=== PATIENT | female | born 1945 | race Caucasian/White ===

== ENCOUNTER 2017-08-11 09:54 | Inpatient (IN) | payer BC, OTHER ==
[~2017-08-11] VITALS: Ht 162.6 cm; Wt 87.5 kg
--- NOTE | ~2017-08-11 | EKG ---
[address] [place] [address] ELECTROCARDIOGRAM REPORT Name: JAEL CROCKETT Room #: 444-P [facility] IN .R.#: [id number] Admission: 08/11/17 Attend Phys: Andrey Dempsey MD Discharge: Date of : 41 Report #: [id number] THIS REPORT FOR: //name// [facility] ED Test Date: 2017-08-11 Test Time: 11:59:05 Pat Name: JAEL CROCKETT Department: Room: [facility] Gender: F Direct Support Worker: .. : 1945 Requested By: Zechariah Geller Order Number: [id number] MD: Jose R Santiago Measurements Intervals [place] Rate: 108 P: 70 MN: 181 QRS: 17 QRSD: 82 T: 44 QT: 327 QTc: 439 Interpretive Statements Sinus tachycardia Otherwise no significant abnormality No previous ECG available for comparison Electronically Signed On 08-15-2017 12:55:26 CDT by Jose R Santiago [email or web address] <ELECTRONICALLY SIGNED> By: Jose R Santiago MD, [facility] 08/15/17 1255 [id number] Jose R Santiago MD, FACC /EPI
--- NOTE | ~2017-08-11 | 2DMMODE ---
[facility] [address] [place] [address] 2 D/M-MODE ECHOCARDIOGRAM Name: JAEL CROCKETT E Room #: 444-P [facility] IN .R.#: [id number] Admission: 08/11/17 Attend Phys: Andrey Dempsey MD Discharge: Date of : 41 Date of Service: 08/16/17 0859 Report #: [id number] THIS REPORT FOR: //name// APPROVED REPORT Study performed: 08/16/2017 07:22:20 EXAM: Comprehensive 2D, Doppler, and color-flow Echocardiogram Patient Location: Echo lab Room #: [facility] Status: routine BSA: 1.96 HR: 100 bpm BP: 152/92 mmHg Rhythm: Tachycardia/NSR/Irregular Other Information Study Quality: Good Indications Pulmonary hypertension, short of breath. Hx: COPD, HTN 2D Dimensions RVDd: 30.57 mm LVEF(%): 52.31 (>50%) IVSd: 10.42 (7-11mm) LVOT Diam: 19.97 (18-24mm) LVDd: 47.28 mm PWd: 8.53 (7-11mm) Ascending Ao: 35.00 (22-36mm) LVDs: 34.61 (25-40mm) Aortic Root: 33.43 mm Moraes's LVEF: 52.31 % Volumes Left Atrial Volume (Systole) Single Plane 4CH: 45.78 mL Single Plane 2CH: 58.16 mL LA ESV Index: 28.00 mL/m2 Aortic Valve AoV Peak Ian.: 1.35 m/s AO Peak Gr.: 7.24 mmHg LVOT Max P.60 mmHg LVOT Max V: 1.07 m/s HUMBERTO Vmax: 2.50 cm2 Mitral Valve E/A Ratio: 0.5 MV Decel. Time: 258.40 ms [facility] [place] [address] 2 D/M-MODE ECHOCARDIOGRAM Name: JAEL CROCKETT Room #: 444-P [facility].#: [id number] Admission: 08/11/17 Attend Phys: Andrey Dempsey MD Discharge: Date of : 41 Date of Service: 08/16/17 0859 Report #: [id number] MV E Max Ian.: 0.55 m/s MV A Ian.: 1.03 m/s MV PHT: 74.93 ms IVRT: 79.58 ms Pulmonary Valve PV Peak Ian.: 1.16 m/s PV Peak Gr.: 5.42 mmHg Pulmonary Vein P Vein S: 0.73 m/s P Vein A: 0.34 m/s P Vein D: 0.65 m/s P Vein A Dur.: 86.5 msec P Vein S/D Ratio: 1.12 Tricuspid Valve TR Peak Ian.: 2.38 m/s RAP Estimate: 5.00 mmHg TR Peak Gr.: 22.64 mmHg PA Pressure: 28.00 mmHg Left Ventricle The left ventricle is normal size. There is normal LV segmental wall motion. There is normal left ventricular wall thickness. Left ventricular systolic function is normal. LVEF is >55%. Mild diastolic dysfunction is present (impaired relaxation pattern). Right Ventricle The right ventricle is normal size. The right ventricular systolic function is normal. Atria The left atrium size is normal. The right atrium size is normal. Aortic Valve The aortic valve is mildly sclerotic. No aortic regurgitation is present. There is no aortic valvular stenosis. Mitral Valve The mitral valve is normal in structure. Trace mitral regurgitation. No evidence of mitral valve stenosis. Tricuspid Valve The tricuspid valve is normal in structure. Trace tricuspid regurgitation. Estimated PAP is 25-30mmHg. Pulmonic Valve [address] [address] 2 D/M-MODE ECHOCARDIOGRAM Name: JAEL CROCKETT Room #: 444-P [facility] IN [facility]#: [id number] Admission: 08/11/17 Attend Phys: Andrey Dempsey MD Discharge: Date of : 41 Date of Service: 08/16/17 0859 Report #: [id number] The pulmonary valve is normal in structure. Trace pulmonic regurgitation. Great Vessels The aortic root is normal in size. The ascending aorta is normal in size. IVC is normal in size and collapses >50% with inspiration. Pericardium Small anterior pericardial effusion. <Conclusion> Left ventricular systolic function is normal. There is normal LV segmental wall motion. LVEF is >55%. Mild diastolic dysfunction The aortic valve is mildly sclerotic. No aortic regurgitation or stenosis The mitral valve is normal in structure. Trace mitral regurgitation. Trace tricuspid regurgitation. Estimated pulmonary artery pressure is 25-30mmHg. Small anterior pericardial effusion. <ELECTRONICALLY SIGNED> By: Jose R Santiago MD, FACC 08/16/17 0859 Jose R Santiago MD, FACC /INF
[~2017-08-11 09:54] MED LIST: ALLEGRA ALLERGY60 MG PO; COMBIVENT INH; NASACORT10.8 ML NS; OSELB75 PO; PREDNISONE 20 M20 M1 PO; SIMVASTATIN20 MG PO; SYMBICORT160 MCG/4. INH
[2017-08-11 10:08] VITALS: BP 133/74
[2017-08-11] MEDS ORDERED: VENTOLIN HFA 1818 GM INH (10:12)
[2017-08-11] MEDS ORDERED: ZPAK PO (10:13)
[2017-08-11 10:46] LABS: ABSOLUTE NEUTROPHILS 11.7 thou/uL (1.4-8.2); BASOPHILS 0.7 % (0.0-2.0); EOSINOPHILS 0.2 % (0.0-3.0); HEMATOCRIT 35.2 % (37.0-47.0); HEMOGLOBIN 11.5 gm/dL (12.0-15.0); MCH 29.7 pg (26.0-34.0); MCHC 32.7 g/dL (28.0-37.0); MCV 90.6 fL (80.0-100.0); MONOCYTES 7.5 % (1.0-8.0); PLATELET COUNT 254 thou/uL (150-400); POLYS 82.6 % (36.0-66.0); RBC 3.88 mil/uL (4.20-5.00); RDW 15.4 % (10.5-14.5); WBC 14.2 thou/uL (4.0-11.0)
[2017-08-11 10:55] LABS: ANION GAP 8 mmol/L (7-16); BUN 17 mg/dL (7-18); CALCIUM 8.5 mg/dL (8.5-10.1); CHLORIDE 103 mmol/L (98-107); CO2 26 mmol/L (21-32); CREATININE 0.9 mg/dL (0.6-1.0); GLUCOSE 196 mg/dL (74-106); POTASSIUM 3.5 mmol/L (3.5-5.1); SODIUM 137 mmol/L (136-145)
[2017-08-11 11:05] LABS: ALBUMIN 2.2 g/dL (3.4-5.0); MAGNESIUM 1.9 mg/dL (1.8-2.4); SGOT 13 U/L (15-37); SGPT 21 U/L (30-65); TOTAL BILIRUBIN 0.3 mg/dL (<0.1-1.0); TOTAL PROTEIN 7.4 g/dL (6.4-8.2); TROPONIN-I < 0.04 ng/mL (<0.06)
[2017-08-11 12:44] VITALS: BP 116/73
[2017-08-11 12:52] VITALS: BP 117/73
[2017-08-11] MEDS ORDERED: BLOOD PRESSURE (13:34)
[2017-08-11 13:45] VITALS: BP 118/70
[2017-08-11 15:47] VITALS: BP 90/55
[2017-08-11 19:19] VITALS: BP 121/68
[2017-08-12 03:30] VITALS: BP 117/74
[2017-08-12 06:09] LABS: GLYCOHEMOGLOBIN (HGB A1C) 5.4 % (4.8-5.6)
[2017-08-12 07:30] LABS: CALCIUM 8.4 mg/dL (8.5-10.1); CREATININE 0.6 mg/dL (0.6-1.0); MAGNESIUM 2.1 mg/dL (1.8-2.4); POTASSIUM 4.3 mmol/L (3.5-5.1)
[2017-08-12 08:24] VITALS: BP 125/68
[2017-08-12 09:05] LABS: ABSOLUTE NEUTROPHILS 11.7 thou/uL (1.4-8.2); BASOPHILS 0.2 % (0.0-2.0); HEMATOCRIT 32.2 % (37.0-47.0); HEMOGLOBIN 10.5 gm/dL (12.0-15.0); MCH 29.6 pg (26.0-34.0); MCHC 32.6 g/dL (28.0-37.0); MCV 90.9 fL (80.0-100.0); MONOCYTES 2.5 % (1.0-8.0); PLATELET COUNT 258 thou/uL (150-400); POLYS 91.3 % (36.0-66.0); RBC 3.54 mil/uL (4.20-5.00); RDW 15.4 % (10.5-14.5); WBC 12.8 thou/uL (4.0-11.0)
[2017-08-12 16:18] VITALS: BP 127/65
[2017-08-12 21:05] VITALS: BP 142/88
[2017-08-13 03:19] VITALS: BP 133/76
[2017-08-13 05:27] LABS: ALBUMIN 1.9 g/dL (3.4-5.0); CALCIUM 8.1 mg/dL (8.5-10.1); CREATININE 0.7 mg/dL (0.6-1.0); MAGNESIUM 1.9 mg/dL (1.8-2.4); TOTAL BILIRUBIN 0.2 mg/dL (<0.1-1.0); TOTAL PROTEIN 6.4 g/dL (6.4-8.2)
[2017-08-13 05:29] LABS: HEMATOCRIT 32.2 % (37.0-47.0); HEMOGLOBIN 10.5 gm/dL (12.0-15.0); MCH 29.7 pg (26.0-34.0); MCHC 32.7 g/dL (28.0-37.0); MCV 90.8 fL (80.0-100.0); RBC 3.54 mil/uL (4.20-5.00); RDW 15.4 % (10.5-14.5); WBC 17.4 thou/uL (4.0-11.0)
[2017-08-13 06:04] LABS: TSH 0.766 uIU/mL (0.358-3.740)
[2017-08-13 08:28] VITALS: BP 150/88
[2017-08-13 16:29] VITALS: BP 146/79
[2017-08-13 19:27] VITALS: BP 147/83
[2017-08-14 03:55] VITALS: BP 145/81
[2017-08-14 06:28] LABS: HEMATOCRIT 33.5 % (37.0-47.0); HEMOGLOBIN 10.9 gm/dL (12.0-15.0); MCH 29.5 pg (26.0-34.0); MCHC 32.6 g/dL (28.0-37.0); MCV 90.6 fL (80.0-100.0); RBC 3.7 mil/uL (4.20-5.00); RDW 15.3 % (10.5-14.5); WBC 15.4 thou/uL (4.0-11.0)
[2017-08-14 06:41] LABS: CALCIUM 8.2 mg/dL (8.5-10.1); CREATININE 0.7 mg/dL (0.6-1.0)
[2017-08-14 08:00] VITALS: BP 163/91
[2017-08-14 13:36] LABS: BE(vivo) 3.7 mmol/L (-2 to +3); HCO3 27.2 mmol/L (22.0-26.0); PCO2 37.2 mmHg (35.0-45.0); PO2 56.1 mmHg (80.0-100.0); pH 7.482 (7.360-7.450); sO2 91.3 % (92.0-98.0)
[2017-08-14 16:00] VITALS: BP 144/78
[2017-08-14 19:34] VITALS: BP 152/97
[2017-08-15 04:50] VITALS: BP 144/86
[2017-08-15 05:31] LABS: HEMATOCRIT 35.3 % (37.0-47.0); HEMOGLOBIN 11.6 gm/dL (12.0-15.0); MCH 29.7 pg (26.0-34.0); RBC 3.92 mil/uL (4.20-5.00); RDW 15.6 % (10.5-14.5); WBC 15.4 thou/uL (4.0-11.0)
[2017-08-15 05:42] LABS: CALCIUM 8.7 mg/dL (8.5-10.1); CREATININE 0.8 mg/dL (0.6-1.0); POTASSIUM 4.3 mmol/L (3.5-5.1)
[2017-08-15 08:00] VITALS: BP 144/85
[2017-08-15 16:00] VITALS: BP 127/78
[2017-08-15 21:12] VITALS: BP 144/81
[2017-08-16 03:22] VITALS: BP 152/92
[2017-08-16 05:35] LABS: HEMATOCRIT 37.2 % (37.0-47.0); HEMOGLOBIN 12.3 gm/dL (12.0-15.0); MCH 29.9 pg (26.0-34.0); MCHC 33.1 g/dL (28.0-37.0); MCV 90.4 fL (80.0-100.0); RBC 4.12 mil/uL (4.20-5.00); RDW 15.3 % (10.5-14.5); WBC 15.8 thou/uL (4.0-11.0)
[2017-08-16 05:47] LABS: CALCIUM 8.6 mg/dL (8.5-10.1); CREATININE 0.8 mg/dL (0.6-1.0)
[2017-08-16 09:00] VITALS: BP 145/77
[2017-08-16] MEDS ORDERED: DUONEB 2.5-0.5 M3 ML INH (11:30)
[2017-08-16] MEDS ORDERED: PULMICORT0.5 MG/21 INH (11:30)
[2017-08-16] MEDS ORDERED: NEBULIZER INH (11:32)
[2017-08-16] MEDS ORDERED: LEVAQUIN 750 M750 MG PO (12:30)
[2017-08-16] MEDS ORDERED: PREDNISONE 10 M10 M1 PO (12:31)
[2017-08-16 12:44] VITALS: BP 145/77
== END 2017-08-16 16:00 | disposition home or self-care (01) | DRG 194 ==
LOC: ER 09:54 → EROBS 11:43 → 4S 11:43 → ENTRNSPT 08-16 15:45 → EDTRNSPTSTS 08-16 15:49 → 4S 08-16 16:00
PROVIDERS: Emergency Medicine; Hospitalist; Internal Medicine Pulmonary Disease; Nurse Practitioner; Registered Nurse
DX: J18.9 Pneumonia, unspecified organism (principal); J44.0 Chronic obstructive pulmonary disease with (acute) lower respiratory infection; E44.0 Moderate protein-calorie malnutrition; J44.1 Chronic obstructive pulmonary disease with (acute) exacerbation; E78.00 Pure hypercholesterolemia, unspecified; I10 Essential (primary) hypertension; F17.210 Nicotine dependence, cigarettes, uncomplicated; F41.9 Anxiety disorder, unspecified; Z80.49 Family history of malignant neoplasm of other genital organs; Z88.0 Allergy status to penicillin; Z90.710 Acquired absence of both cervix and uterus; Z98.42 Cataract extraction status, left eye; Z98.41 Cataract extraction status, right eye; Z68.33 Body mass index [BMI] 33.0-33.9, adult
CPT/HCPCS: 10100

== ENCOUNTER → 2017-09-07 | Outpatient (CLI) | payer BC, OTHER ==
[~2017-09-07] MED LIST changes: +BLOOD PRESSURE; +DUONEB 2.5-0.5 M3 ML INH; +LEVAQUIN 750 M750 MG PO; +NEBULIZER INH; +PREDNISONE 10 M10 M1 PO; +PULMICORT0.5 MG/21 INH; +VENTOLIN HFA 1818 GM INH; +ZPAK PO
== END ==
LOC: RAD 12:47
DX: J84.10 Pulmonary fibrosis, unspecified (principal); R91.8 Other nonspecific abnormal finding of lung field

== ENCOUNTER → 2017-09-16 | Outpatient (CLI) | payer BC, OTHER | LOC: CAT 05:45 | DX: J84.9 Interstitial pulmonary disease, unspecified (principal); J43.8 Other emphysema; S32.030A Wedge compression fracture of third lumbar vertebra, initial encounter for closed fracture; R06.00 Dyspnea, unspecified; Z88.0 Allergy status to penicillin; X58.XXXA Exposure to other specified factors, initial encounter; Y93.89 Activity, other specified; Y92.89 Other specified places as the place of occurrence of the external cause; Y99.8 Other external cause status ==

== ENCOUNTER → 2017-11-10 | Outpatient (CLI) | payer BC, OTHER | LOC: CAT 05:49 | DX: J43.2 Centrilobular emphysema (principal); I70.90 Unspecified atherosclerosis; M48.56XA Collapsed vertebra, not elsewhere classified, lumbar region, initial encounter for fracture ==

== ENCOUNTER → 2017-11-22 | Outpatient (CLI) | payer OTHER, BC | LOC: SLEEPLAB 12:46 | DX: G47.33 Obstructive sleep apnea (adult) (pediatric) (principal) ==

== ENCOUNTER 2019-06-28 10:12 | Inpatient (IN) | payer OTHER ==
[~2019-06-28] VITALS: Ht 162.6 cm; Wt 97.1 kg
--- NOTE | ~2019-06-28 | EKG ---
[facility] [place] [address] ELECTROCARDIOGRAM REPORT Name: JAEL CROCKETT Room #: 170- ADM IN M.R.#: [id number] Admission: 06/28/19 Attend Phys: Lillian Rojas MD Discharge: Date of : 41 Report #: [id number] THIS REPORT FOR: cc: Edis Henson David J. DO Epiphany, Epiphany MD ~ THIS REPORT FOR: //name// [facility] ED Test Date: 2019-06-28 Test Time: 10:39:35 Pat Name: JAEL CROCKETT Department: Room: 170 4 Gender: F Manager Telemarketing: JAQUELIN : 1945 Requested By: Sana Mathew Order Number: [id number] MD: Measurements Intervals [place] Rate: 106 P: 82 OK: 196 QRS: 60 QRSD: 70 T: 79 QT: 346 QTc: 460 Interpretive Statements Sinus tachycardia No previous ECG available for comparison [email or web address] By: 1039 1039 Epiphany EpiphanyMD /EPI
--- NOTE | ~2019-06-28 | H ---
[facility] [place] [address] HISTORY AND PHYSICAL Name: JAEL CROCKETT Room #: 216-P ADM IN M.R.#: [id number] Admission: 06/28/19 Attend Phys: Lillian Rojas MD Discharge: Date of : 41 Report #: [id number] THIS REPORT FOR: //name// CC: Edis Rojas DATE OF SERVICE: 06/28/2019 ADMISSION HISTORY AND PHYSICAL EXAMINATION Primary care physician, Dr. Juanjose Henson and primary detective bowling alley, Dr. Weber at [facility] and she has not seen anyone since Dr. Weber left. CHIEF COMPLAINT: Fever, cough and worsening shortness of breath for past 1-2 days. HISTORY OF PRESENT ILLNESS: The patient is a very pleasant 73-year-old female with continued tobacco use and severe COPD along with mild bronchiectasis and hypertension. The patient informs me that her baseline level of activity is walking from the parking lot to the [employer] at a very slow pace. If she has to walk faster, then she gets short of breath, but lately even getting up and going to the bathroom, she has been short of breath and her cough has been progressively worsening. Since yesterday morning, she has been having persistent fever and the cough has gotten significantly worse as well along with sputum production, which is clear. The patient denies any exposure to illness and she denies any pleuritic chest pain. Denies any hemoptysis. Has not had any associated nausea, vomiting or diarrhea along with this upper respiratory illness. She denies any associated sore throat, ear infection or sinus drainage. The patient also denies any dysuria, hematuria, frequency or urgency of urination. The patient also has no weakness or numbness of any part of the body and also denies any dizziness, lightheadedness, or syncopal episodes. PAST MEDICAL HISTORY: Significant for: 1. Hypertension. 2. COPD. 3. Bronchiectasis. 4. Questionable history of heart disease. PAST SURGICAL HISTORY: The patient has had: 1. Partial hysterectomy. 2. Cholecystectomy. FAMILY HISTORY: The patient informs me that mother had diabetes mellitus and denies any other family history. [address] [address] HISTORY AND PHYSICAL Name: JAEL CROCKETT Room #: 216-P [facility] IN [facility].#: [id number] Admission: 06/28/19 Attend Phys: Lillian Rojas MD Discharge: Date of : 41 Report #: [id number] PERSONAL AND SOCIAL HISTORY: The patient continues to smoke 1 pack per day and has smoked all her life and has absolutely no intentions to quit smoking and denies any alcohol intake. PHARMACY: The patient uses [facility] on [address] or at [facility]. Her emergency contact is her daughter, Prerna Mcintosh, and a durable power of patent prosecution attorney for health is her son Cricket [phone]. The patient wishes to be full code, but she does have advanced directives. ALLERGIES: THE PATIENT IS ALLERGIC TO PENICILLIN, WHICH MAINLY CAUSES NAUSEA AND VOMITING AND HAS NOT HAD ANY ALLERGIC REACTION A RASH OR TO CEPHALOSPORINS. REVIEW OF SYSTEMS: Ten-point review of system was done. Please see HPI. PHYSICAL EXAMINATION: VITAL SIGNS: Temperature 38.5, heart rate 115, respirations 20, blood pressure 141/75, pulse oximetry 94% on room air. GENERAL: Alert and oriented to time, place and person, very pleasant, obese female who is having dry cough during the visit and is in mild distress because of cough and dyspnea. HEENT: Normocephalic, atraumatic. Pupils are equally round and reactive to light. Extraocular muscle movements are intact. Conjunctivae are clear. Sclerae are nonicteric. Oropharynx is clear. No postnasal drip noted. Mucous membranes are moist. NECK: Supple, no JVD, no lymphadenopathy. HEART: S1, S2, regular. Tachycardia noted. LUNGS: The patient has end expiratory wheezes in all lung freedman and bibasilar crackles are also noted. No chest wall tenderness elicited. The patient has bilaterally symmetrical chest expansion. ABDOMEN: Soft, nontender, nondistended, normal active bowel sounds. EXTREMITIES: No edema both lower extremities. NEUROLOGIC: Completely nonfocal. SKIN: Without any rash or breakdown. LABORATORY DATA: The patient has a blood gas of 7.437 pH with pCO2 of 35.4, pO2 low at 57.7 and oxygen saturation low as well as 89% on room air with carboxyhemoglobin elevated at 1.6, lactic acid 0.81. Urinalysis with pH 6.0, specific gravity 1.020, 2+ blood, negative for leukocyte esterase as well as nitrites. Influenza A and B are negative. Hematology indicates WBC elevated at 13.7, hemoglobin 11.3, hematocrit 35 and RDW mildly elevated at 16.2 and platelet count normal at 195. Differential is [address] [address] HISTORY AND PHYSICAL Name: JAEL CROCKETT Room #: 216-P ADM IN M.R.#: [id number] Admission: 06/28/19 Attend Phys: Lillian Rojas MD Discharge: Date of : 41 Report #: [id number] significant for segmented neutrophil elevated at 82.2. Chemistries indicate sodium 134, potassium 3.9, chloride 102, bicarbonate 25, anion gap 7, BUN 19, creatinine 0.9. Calculated GFR is 61. Serum glucose is 127. Lactic acid is 1.3, calcium 8.4, total bilirubin 0.4, AST 16, ALT 22, alkaline phosphatase 54, total protein 7.4, albumin 2.8. Electrocardiogram indicates sinus tachycardia, but otherwise unremarkable EKG. Chest x-ray portable done in the Emergency Room indicates moderate chronic pulmonary interstitial changes and minor basal atelectasis. Blood cultures have been drawn in the Emergency Room and are pending. ASSESSMENT AND PLAN: 1. Chronic obstructive pulmonary disease exacerbation. 2. Acute febrile illness with possible tracheobronchitis and bronchiectasis. 3. Hypertension. 4. Acute hypoxemic respiratory failure. The patient is not on home oxygen and has had COPD with some interstitial changes and some bronchiectasis as per the CT scan of the chest from 2015 when the patient was being followed by Dr. Weber here, the patient had a repeat CT in 10/2017, which indicated numerous calcified granuloma and bullous emphysema as well as moderately severe centrilobular emphysema and mild pleural parenchymal scarring noted as well. The patient is aware about her advanced pulmonary disease and would go ahead and start Solu-Medrol. For possible pneumonitis and tracheobronchitis, we will go ahead and do a strep pneumo antigen and legionella antigen with respiratory viral panel as well and we will consider pulmonary consulted if the patient does not respond to the treatment. 5. We will go ahead and do Accu-Cheks q.i.d. a.c. and at bedtime as the patient does have a history of hyperglycemia. For hypertension, we will go ahead and resume her home medication, Norvasc and if needed, then we will use hydralazine p.r.n. 6. The patient wishes to be full code. Orders have been written. We will go ahead and repeat chest x-ray tomorrow morning. Plan of care was discussed with the patient as well as her daughter who is sitting at the bedside. By: 1604 [id number] Lillian Rojas MD /nt
[2019-06-28 10:15] VITALS: BP 141/75
[2019-06-28] MEDS ORDERED: NORVASC5 M1 PO (10:19)
[2019-06-28] MEDS ORDERED: ESCITALOPRAM OX20 MG PO (10:21)
[2019-06-28] MEDS ORDERED: VITAMIN C1000 MG PO (10:21)
[2019-06-28] MEDS ORDERED: CALCIUM + VITA1 EACH PO (10:24)
[2019-06-28 11:12] LABS: ABSOLUTE NEUTROPHILS 11.3 thou/uL (1.4-8.2); BASOPHILS 0.4 % (0.0-2.0); EOSINOPHILS 0.9 % (0.0-3.0); HEMOGLOBIN 11.3 gm/dL (12.0-15.0); LYMPHOCYTES 7.9 % (24.0-44.0); MCH 29.6 pg (26.0-34.0); MCHC 32.2 g/dL (28.0-37.0); MONOCYTES 8.6 % (1.0-8.0); PLATELET COUNT 195 thou/uL (150-400); POLYS 82.2 % (36.0-66.0); RDW 16.2 % (10.5-14.5); WBC 13.7 thou/uL (4.0-11.0)
[2019-06-28 11:23] LABS: ANION GAP 7 mmol/L (7-16); BUN 19 mg/dL (7-18); CALCIUM 8.4 mg/dL (8.5-10.1); CHLORIDE 102 mmol/L (98-107); CO2 25 mmol/L (21-32); CREATININE 0.9 mg/dL (0.6-1.0); GLUCOSE 127 mg/dL (74-106); POTASSIUM 3.9 mmol/L (3.5-5.1); SODIUM 134 mmol/L (136-145)
[2019-06-28 11:31] LABS: ALBUMIN 2.8 g/dL (3.4-5.0); DIRECT BILIRUBIN < 0.1 mg/dL (<0.1-0.2); SGOT 16 U/L (15-37); SGPT 22 U/L (30-65); TOTAL BILIRUBIN 0.4 mg/dL (<0.1-1.0); TOTAL PROTEIN 7.4 g/dL (6.4-8.2)
[2019-06-28 12:49] LABS: URINE BILIRUBIN NEGATIVE (Negative); URINE BLOOD 2+ (Negative); URINE CLARITY CLEAR; URINE COLOR YELLOW; URINE GLUCOSE-RANDOM* NEGATIVE (Negative); URINE KETONES NEGATIVE (Negative); URINE LEUKOCYTES-REFLEX NEGATIVE (Negative); URINE NITRITE-REFLEX NEGATIVE (Negative); URINE PROTEIN (DIPSTICK) TRACE (Negative); URINE UROBILINOGEN 0.2 E.U./dl (0.2-1.0)
[2019-06-28 13:13] LABS: BACTERIA-REFLEX 1-9 Few /HPF (None Seen); CASTS None Seen /LPF (None Seen); CRYSTALS None Seen /LPF (None Seen); SQUAMOUS 0-3 Few /LPF (0-3); URINE RBC 3-10 Few /HPF (0-2); URINE WBC-REFLEX 0-5 Rare /HPF (0-5)
[2019-06-28 13:59] LABS: BE(vivo) -0.5 mmol/L (-2 to +3); HCO3 23.3 mmol/L (22.0-26.0); PCO2 35.4 mmHg (35.0-45.0); PO2 57.7 mmHg (80.0-100.0); pH 7.437 (7.360-7.450); sO2 91.1 % (92.0-98.0)
[2019-06-28 16:00] VITALS: BP 107/67
[2019-06-28 17:00] VITALS: BP 107/67
[2019-06-28 17:03] VITALS: BP 105/86
[2019-06-28 18:01] LABS: ABSOLUTE NEUTROPHILS 12.3 thou/uL (1.4-8.2); BASOPHILS 0.2 % (0.0-2.0); HEMATOCRIT 36.7 % (37.0-47.0); HEMOGLOBIN 11.7 gm/dL (12.0-15.0); LYMPHOCYTES 3.9 % (24.0-44.0); MCH 29.7 pg (26.0-34.0); MCV 92.7 fL (80.0-100.0); MONOCYTES 1.7 % (1.0-8.0); PLATELET COUNT 205 thou/uL (150-400); POLYS 94.2 % (36.0-66.0); RBC 3.96 mil/uL (4.20-5.00); RDW 16.4 % (10.5-14.5); WBC 13.1 thou/uL (4.0-11.0)
[2019-06-28 18:11] LABS: CALCIUM 8.1 mg/dL (8.5-10.1); CREATININE 0.9 mg/dL (0.6-1.0)
[2019-06-28 18:18] LABS: ALBUMIN 2.9 g/dL (3.4-5.0); TOTAL BILIRUBIN 0.5 mg/dL (<0.1-1.0); TOTAL PROTEIN 7.8 g/dL (6.4-8.2)
--- NOTE | 2019-06-28 18:50 | NUR ---
PT ADMITED FROM ER. ALERT AND ORIENTED. ADMISSION HX AND ASSESSMENT COMPLETED. VSS. PT ORIENTED TO THE ROOM AND THE CALL LIGHT SYSTEM. NEW ORDERS NOTED. WILL CONTINUE TO MONITOR.
[2019-06-28 19:43] VITALS: BP 129/65
[2019-06-29 04:11] VITALS: BP 109/57
[2019-06-29 05:27] LABS: ABSOLUTE NEUTROPHILS 10.7 thou/uL (1.4-8.2); BASOPHILS 0.1 % (0.0-2.0); HEMATOCRIT 33.9 % (37.0-47.0); HEMOGLOBIN 10.7 gm/dL (12.0-15.0); LYMPHOCYTES 4.9 % (24.0-44.0); MCH 29.5 pg (26.0-34.0); MCHC 31.7 g/dL (28.0-37.0); MCV 93.2 fL (80.0-100.0); PLATELET COUNT 190 thou/uL (150-400); RBC 3.64 mil/uL (4.20-5.00); RDW 16.5 % (10.5-14.5); WBC 11.5 thou/uL (4.0-11.0)
[2019-06-29 05:56] LABS: CALCIUM 7.8 mg/dL (8.5-10.1); CREATININE 1.1 mg/dL (0.6-1.0); MAGNESIUM 2.1 mg/dL (1.8-2.4); PHOSPHORUS 1.5 mg/dL (2.5-4.9); POTASSIUM 3.6 mmol/L (3.5-5.1)
[2019-06-29 07:00] VITALS: BP 121/63
--- NOTE | 2019-06-29 08:05 | NUR ---
ASSESSMENTS CHARTED, MEDS GIVEN CHARTED. ALERT AND ORIENTED, WHEEZES ON INSPIRATION. UP TO BATHROOM AT ALEJA. SKIN INTACT. PATIENT REQUESTED NICOTINE PATCH. PATCH PLACED ON LEFT DELTOID. PATIENT RECEIVING IV STEROID THERAPY. BLOOD SUGARS BEING CHECKED ACHS WITH SSI.
[2019-06-29 11:00] VITALS: BP 125/65
--- NOTE | 2019-06-29 13:39 | NUR ---
ORDERS RECEIVED FOR EVAL AND TREAT. PER NURSING NOTES, Pt IS UP AD ALEJA. SPOKE WITH Pt WHO STATES SHE HAS BEEN UP WITHOUT DIFFICULTY. ASKED HER ABOUT PREVIOUS FALLS AND Pt STATES SHE SLIPPED ON ICE. Pt DECLINING FORMAL P.T. EVAL BUT APPEARS TO BE MOVING FINE
--- NOTE | 2019-06-29 14:05 | NUR ---
PATIENT REFUSED FORMAL OT EVALUATION, REPORTS THAT SHE DOESN'T HAVE ANY DIFFICULTY COMPLETING ADLS.
--- NOTE | 2019-06-29 15:42 | NUR ---
ASSESSMENT CHARTED. PT ALERT AND ORIENTED. DENIED HAVING PAIN OR DISCOMFORT. RT TREATMENT PROVIDED ORDERED. NO CONCERNS AT THIS TIME. WILL CONTINUE TO MONITOR.
[2019-06-29 16:00] VITALS: BP 131/68
--- NOTE | 2019-06-29 16:26 | NUR ---
Chart reviewed and case discussed with the care team. Pt declined therapy evals and is indep with gait and adl's. Up ad buffy in the room. Her grandson recently moved in with her. She has ins and pcp in place for f/u care. Case not opened. No cm interventions indicated at this time.
[2019-06-29 19:31] VITALS: BP 130/73
--- NOTE | 2019-06-30 01:02 | NUR ---
ASSESSMENTS CHARTED, MEDS GIVEN CHARTED. PATIENT CONTINUES TO HAVE WHEEZES WITH BREATHS, ON ROOM AIR. RECEIVING BREATHING TREATMENTS. CHECKING BLOOD GLUCOSE DUE TO IV STEROID THERAPY. ON SSI. PATIENT UP AT ALEJA IN ROOM. NICOTINE PATCH IN PLACE ON RIGHT DELTOID. DENIES PAIN. RECEIVING ABX TREATMENT DAILY. PATIENT IS HOPING TO GO HOME IN MORNING IF POSSIBLE.
[2019-06-30 04:34] VITALS: BP 135/78
[2019-06-30 08:03] VITALS: BP 122/91
[2019-06-30 11:30] VITALS: BP 140/80
--- NOTE | 2019-06-30 15:42 | NUR ---
met with patient who resides at home independently. No steps on main level of home. She has no DME and no hx of needing DME. PCP Dr Gan at [facility]. Grandson resides with patient in home. She fell on ice but reports independent. she is up ad buffy in room. Patient reports her spouse passed last year and family, her children are very supportive and check on her frequently. casemgt following.
[2019-06-30 15:57] LABS: ABSOLUTE NEUTROPHILS 13.7 thou/uL (1.4-8.2); BASOPHILS 0.2 % (0.0-2.0); HEMATOCRIT 35.6 % (37.0-47.0); HEMOGLOBIN 11.5 gm/dL (12.0-15.0); LYMPHOCYTES 4.6 % (24.0-44.0); MCH 29.6 pg (26.0-34.0); MCHC 32.2 g/dL (28.0-37.0); MCV 92.1 fL (80.0-100.0); MONOCYTES 4.2 % (1.0-8.0); PLATELET COUNT 232 thou/uL (150-400); RBC 3.87 mil/uL (4.20-5.00); RDW 16.2 % (10.5-14.5); WBC 15.1 thou/uL (4.0-11.0)
[2019-06-30 16:47] VITALS: BP 135/78
--- NOTE | 2019-06-30 17:18 | NUR ---
PT ALERT AND ORIENTED. SCHEDULED RT TREATMENT GIVEN ORDERED. SOB NOTED WITH ACTIVITY. SEEN BY DR. DIETZ. WILL CONTINUE TO MONITOR.
[2019-06-30 20:10] VITALS: BP 136/81
--- NOTE | 2019-06-30 23:41 | NUR ---
ASSESSMENTS CHARTED, MEDS GIVEN CHARTED. RECEIVING IV ANTIBIOTIC THERAPY. PATIENT STILL RECEIVING STEROID THERAPY. BEGAN TAPER TODAY. PATIENTS ANXIETY MEDS RESTARTED TODAY. ACHS ON SSI DUE TO STEROID USE. PATIENT PAIN FREE DURING SHIFT. UP AT ALEJA IN ROOM. VSS. PATIENT IS HOPING TO GO HOME IN AM OR NO LATER THAN WEDNESDAY MORNING TO WATCH THE [employer] GAME WITH FAMILY.
[2019-07-01 04:45] VITALS: BP 126/80
[2019-07-01 08:00] VITALS: BP 132/78
[2019-07-01 16:00] VITALS: BP 143/83
[2019-07-01 17:29] VITALS: BP 144/87
--- NOTE | 2019-07-01 17:47 | NUR ---
ASSUMED CARE OF PT AT SHIFT CHANGE. ASSESSMENT CHARTED. MEDS GIVEN PER JUL. VSS. PT A&OX4. NO C/O PAIN. ON RA WITH NON-PRODUCTIVE COUGH. UP AD ALEJA, BUT NEEDS TO WALK TONIGHT. [facility]ERRED TO [facility]. REPORT GIVEN TO RECEIVING NURSE.
[2019-07-01 19:15] VITALS: BP 136/81
--- NOTE | 2019-07-01 19:32 | NUR ---
PATIENT TRANSFERRED FROM [address] [place] [address], REPORT FROM KATIE/RN. PATIENT ALERT AND ORIENTED X 4. UP AD ALEJA. POSSIBLE DISCHARGE TOMORROW. DENIES PAIN UPON ARRIVAL TO THE UNIT.
--- NOTE | 2019-07-02 04:31 | NUR ---
PATIENT ALERT AND ORIENTED X4. UP ADLIB IN ROOM. ACCEPTING RT TREATMENTS THROUGHOUT THE NIGHT. BS MONITORED PER ORDER. NON PRODUCTIVE COUGH, GIVEN PRN MEDICATION WITH GOOD RESULTS. PLEASANT AND COOPERATIVE. GOOD REST DURING THE NIGHT. SOME SOA NOTED, HOWEVER, RECOVERED WELL. DENIES PAIN. WILL MONITOR.
[2019-07-02 08:00] VITALS: BP 151/91
--- NOTE | 2019-07-02 12:14 | NUR ---
ASSUMED CARE OF PATIENT AT 0715, PATIENT ALERT AND ORIENTED X 4. UP AD ALEJA. PATIENT DENIES PAIN THIS AM. PATIENT STILL HAS WHEEZES AND NPC, RECEIVES BREATHING TREATMENTS SCHEDULED. DR DILLON HERE THIS AM, NO DISCHAGE TODAY, MATNIKHIL TOMORROW. PATIENT HAS RIGHT FOREARM IV IN PLACE, RECEIVED 1 IV ANTIBIOTIC THIS AM. BLOOD SUGAR MONITORING ORDERED DUE TO STEROIDS. WILL CONTINUE TO MONITOR.
[2019-07-02 19:58] VITALS: BP 128/79
[2019-07-02 20:18] VITALS: BP 128/79
--- NOTE | 2019-07-03 03:53 | NUR ---
ASSSUMED CARE OF PATIENT AT SHIFT CHANGE. ASSESSMENT CHARTED. MEDICATIONS GIVEN PER JUL. PATIENT IS A&OX4. VSS, O2 94% ON RA. PATIENT DENIES PAIN. PATIENT GETS UP TO AMBULATE AND TOILET INDEPENDENTLY WITH GOOD TOLERANCE. PATIENT CONTINUE TO GET SHORT OF AIR WHEN AMBULATING AND CONTINUE TO HAVE A NONPRODUCTIVE COUGH THIS SHIFT. RT TX GIVEN SCHEDULED. PATIENTS COUGH WAS EXACERBATED AFTER RECIEVING 3AM TX. PATIENT WAS GIVEN BENZONATATE PO NEEDED. PER PHYSICIAN NOTE, PLAN IS TO DISCHARGE IN AM. PATIENT CALLS OUT APPROPRIATELY AND VOICES NO OTHER CONCERNS. WILL CONTINUE TO MONITOR AND FOLLOW PLAN OF CARE.
--- NOTE | 2019-07-03 05:24 | NUR ---
THIS NURSE AGREES WITH ASSESSMENT AND NOTES BY FINANCIAL SPECIALIST ON THIS PATIENT.
[2019-07-03 07:16] VITALS: BP 133/77
--- NOTE | 2019-07-03 10:36 | NUR ---
DISCHARGE NOTE: SW reviewed chart and spoke with nursing and attending physician. Pt was transferred to [facility] from and is medically stable for discharge home today. SW met with pt at bedside to discuss discharge plan. Pt is aware and in agreement with discharge plan. No discharge needs identified. Pt's family to provide transportation home. SW is available to assist should needs arise.
[2019-07-03] MEDS ORDERED: BENZONATATE100 MG PO (12:41)
[2019-07-03] MEDS ORDERED: NICOTINE1 EAC2 TRANSDERM (12:41)
[2019-07-03] MEDS ORDERED: MUCINEX600 MG PO (12:41)
[2019-07-03] MEDS ORDERED: PREDNISONE 20 M20 M1 PO (12:41)
[2019-07-03] MEDS ORDERED: CEFDINIR300 MG PO (12:43)
[2019-07-03 13:02] VITALS: BP 133/77
--- NOTE | 2019-07-03 14:44 | NUR ---
ASSUMED CARE OF PATIENT AT 0715, PATIENT ALERT AND ORIENTED X 4. UP AD ALEJA. NO C/O PAIN. COUGHING MORE, NPC. WHEEZING NOTED WITH LUNGS, BREATHING TREATMENT SCHEDULED. PO PREDNISONE STARTED THIS AM, ONETIME ORDER FOR LASIX 40MG IV GIVEN. DR DILLON HERE THIS AM, WILL DISCHARGE PATIENT TO HOME WITH SELF CARE. RIGHT FOREARM IV, RECEIVED 1 IV ANTIBIOTIC THIS AM. ALL DISCHARGE PAPERWORK SENT WITH THE PATIENT AND ALL PERSONAL BELONGINGS SENT WITH THE PATIENT. NEW SCRIPTS SENT TO THE PATIENT PHARMACY. RIGHT FOREARM IV REMOVED PRIOR TO DISCHARGE.
== END 2019-07-03 14:59 | disposition home or self-care (01) | DRG 871 ==
LOC: ER 10:12 → EROBS 14:13 → 2N 14:13 → 4N 07-01 17:10 → ENTRNSPT 07-03 14:18 → EDTRNSPTSTS 07-03 14:28 → 4N 07-03 14:59
PROVIDERS: Emergency Medicine; ADMIT Internal Medicine
DX: A41.9 Sepsis, unspecified organism (principal); J96.22 Acute and chronic respiratory failure with hypercapnia; J96.21 Acute and chronic respiratory failure with hypoxia; J44.1 Chronic obstructive pulmonary disease with (acute) exacerbation; J44.0 Chronic obstructive pulmonary disease with (acute) lower respiratory infection; I10 Essential (primary) hypertension; E78.5 Hyperlipidemia, unspecified; E78.00 Pure hypercholesterolemia, unspecified; F17.210 Nicotine dependence, cigarettes, uncomplicated; E83.39 Other disorders of phosphorus metabolism; J20.9 Acute bronchitis, unspecified; F32.9 Major depressive disorder, single episode, unspecified; G47.00 Insomnia, unspecified; E66.9 Obesity, unspecified; Z83.3 Family history of diabetes mellitus; Z68.36 Body mass index [BMI] 36.0-36.9, adult; Z80.9 Family history of malignant neoplasm, unspecified; Z90.49 Acquired absence of other specified parts of digestive tract; Z90.710 Acquired absence of both cervix and uterus; Z79.899 Other long term (current) drug therapy; Z88.0 Allergy status to penicillin
CPT/HCPCS: 10081; 10790

== ENCOUNTER 2021-05-02 11:15 | Emergency (ER) | payer OTHER ==
[~2021-05-02] VITALS: Ht 162.6 cm; Wt 90.7 kg
[~2021-05-02 11:15] MED LIST changes: +BENZONATATE100 MG PO; +CALCIUM + VITA1 EACH PO; +CEFDINIR300 MG PO; +ESCITALOPRAM OX20 MG PO; +MUCINEX600 MG PO; +NICOTINE1 EAC2 TRANSDERM; +NORVASC5 M1 PO; +VITAMIN C1000 MG PO
[2021-05-02] MEDS ORDERED: TESSALON PERLE100 MG PO (13:41)
[2021-05-02] MEDS ORDERED: AZITHROMYCIN 2250 MG PO (13:41)
[2021-05-02 14:03] VITALS: BP 129/72
--- NOTE | 2021-05-03 12:44 | EKG ---
[address] [address] ELECTROCARDIOGRAM REPORT Name: JAEL CROCKETT Room #: [facility]#: [id number] Admission: 05/02/21 Attend Phys: Discharge: 05/02/21 Date of : 41 Report #: [id number] [facility] [place] [place] ED Test Date: 2021-05-02 Test Time: 11:25:33 Pat Name: JAEL CROCKETT Department: Room: Gender: F Emergency Services Professional: BONNY : 1945 Requested By: Mingo Cardenas Order Number: [id number] MD: Juno Carrion Measurements Intervals [place] Rate: 109 P: 71 WA: 169 QRS: 24 QRSD: 80 T: 61 QT: 323 QTc: 436 Interpretive Statements Sinus tachycardia Probable left atrial enlargement Baseline wander in lead(s) V3 Compared to ECG 06/28/2019 10:39:35 No significant changes Electronically Signed On 05-03-2021 12:43:50 [employer]ALLET [employer]SEM[employer] by Juno Carroin [email or web address] <ELECTRONICALLY SIGNED> By: Juno Carrion MD 05/03/21 1243 1125 1125 Juno Carrion MD /ANTOINE
== END 2021-05-02 14:04 | disposition home or self-care (01) ==
LOC: ER 11:15
DX: J44.9 Chronic obstructive pulmonary disease, unspecified (principal); Z20.822 Contact with and (suspected) exposure to COVID-19; E78.00 Pure hypercholesterolemia, unspecified; I10 Essential (primary) hypertension; F17.210 Nicotine dependence, cigarettes, uncomplicated; Z88.0 Allergy status to penicillin; Z79.899 Other long term (current) drug therapy; Z90.49 Acquired absence of other specified parts of digestive tract; Z90.710 Acquired absence of both cervix and uterus

== ENCOUNTER 2021-05-30 23:50 | Inpatient (IN) | payer OTHER ==
[~2021-05-30] VITALS: Ht 162.6 cm; Wt 85.1 kg
--- NOTE | ~2021-05-30 | EMS ---
[address] [address] EMS Patient Care Report Name: JAEL CROCKETT [id number] Admission: 05/30/21 Attend Phys: Discharge: Date of : 43 Report #: [id number] THIS REPORT FOR: //name// Report Transmitted: 05/30/2021 23:23 EMS Care Summary [place], [place]/[facility] Incident [id number] @ 05/30/2021 23:13 Incident Location [address] [place] [address] Patient JAEL CROCKETT Female, 75 Years 1945 Patient Address [id number] [place] [address] Patient History Chronic Obstructive Pulmonary Disease (COPD), Patient Allergies Other drug allergy, Patient Medications Albuterol, Chief Complaint COPD Disposition Transported No Lights/[place] Dispatch Reason Breathing Problem Transported To [facility] Narrative Arrived on the scene, with P42, for a 75 y/o female that is sitting in a chair in her bedroom. Pt said that she has been having difficulties with her breathing all day. Pt said that she has done a breathing tx 3 times today every 6 hours. Pt said that tonight, the treatment didn't help and that is why [address] [address] EMS Patient Care Report Name: JAEL CROCKETT Room #: REG YIN Rossi#: [id number] Admission: 05/30/21 Attend Phys: Discharge: Date of : 43 Report #: [id number] she called. The medic on the P42 said that she is wheezy and tight and was at 78 percent on RA. With the treatment, Pt made it up to 88-90 percent and still having labored breathing. Pt said that our treatment is helping a little bit. See Pt Assessment COPD See Flowchart. Assisted Pt from the chair to the cot. Transported to the hospital with zero change or incidents. Assisted Pt from the cot to the bed. Transferred care to receiving facility. Initial Vitals @23:33P: 120,R: 22,BP: 146/76,Pain: 0/10,GCS: 15,SpO2: 88,Revised Trauma: 12, @23:43P: 119,R: 22,BP: 142/76,Pain: 0/10,GCS: 15,SpO2: 89,Revised Trauma: 12, Assessments @23:25MENTAL:Time Oriented,Event Oriented,Person Oriented,Place Oriented,SKIN:HEENT:Head/Face: No Abnormalities,Eyes: No Abnormalities,Neck/Airway: No Abnormalities,LUNG SOUNDS:General: No Abnormalities,Left Upper: No Abnormalities,Right Upper: No Abnormalities,Left Lower: No Abnormalities,Right Lower: No Abnormalities,ABDOMEN:General: No Abnormalities,Left Upper: No Abnormalities,Right Upper: No Abnormalities,Left Lower: No Abnormalities,Right Lower: No Abnormalities,PELVIS//GI:No Abnormalities,EXTREMITIES:Left Arm: No Abnormalities,Right Arm: No Abnormalities,Left Leg: No Abnormalities,Right Leg: No Abnormalities,PULSE:Radial: 2+ Normal,NEURO:No Abnormalities, Impression Chronic Obstructive Pulmonary Disease (COPD) Procedures @PTAALS Assessment Response: Unchanged @PTAAlbuterol - 2.5 Milligrams (mg) - Nebulized Response: Improved @23:25 ALS Assessment Response: Unchanged @23:36 IV Therapy - Saline Lock 5cc (20 ga) Site: Forearm-Left Response: UnchangedSucceeded @PTAAtrovent - 0.5 Milligrams (mg) - Nebulized Response: Improved @23:39 Solu-Medrol - 125 Milligrams (mg) - Intravenous (IV) Response: Improved Timeline RESIDENTIAL DOOR INSTALLER,ALS Assessment,Response: Unchanged RESIDENTIAL DOOR INSTALLER,Albuterol - 2.5 Milligrams (mg) - Nebulized,Response: Improved RESIDENTIAL DOOR INSTALLER,Atrovent - 0.5 Milligrams (mg) - Nebulized,Response: Improved 23:11,Call Received [facility] [address] [place] [address] EMS Patient Care Report Name: JAEL CROCKETT E Room #: [facility]#: [id number] Admission: 05/30/21 Attend Phys: Discharge: Date of : 41 Report #: [id number] 23:11,Dispatch Notified 23:13,Dispatched 23:14,En Route 23:23,On Scene 23:25,At Patient 23:25,ALS Assessment,Response: Unchanged 23:33,BP: 146/76 M,PULSE: 120,RR: 22 R,SPO2: 88 Ox,ETCO2: ,BG: ,PAIN: 0,GCS: 15, 23:34,Depart Scene 23:36,IV Therapy - Saline Lock 5cc 20 ga Site: Forearm-Left,Response: UnchangedSucceeded, 23:39,Solu-Medrol - 125 Milligrams (mg) - Intravenous (IV),Response: Improved 23:43,BP: 142/76 M,PULSE: 119,RR: 22 R,SPO2: 89 Ox,ETCO2: ,BG: ,PAIN: 0,GCS: 15, 23:51,At Destination 00:03,Call Closed Disclaimer v1.1 Copyright 2020 [employer] This EMS Care Summary contains data elements from the applicable legal record (which may be displayed differently). It is designed to provide pertinent information for the following purposes: continuity of care, clinical quality, and state data reporting. The complete legal record is available to ED staff and administrators of the receiving hospital in [employer] Patient Tracker. All data is provided "as is."
--- NOTE | ~2021-05-30 | EMS ---
[address] [address] EMS Patient Care Report Name: JAEL CROCKETT [facility] [id number] Admission: 05/30/21 Attend Phys: Discharge: Date of : 41 Report #: [id number] THIS REPORT FOR: //name// Report Transmitted: 05/31/2021 00:24 EMS Care Summary [place], [place]/[facility] Incident [id number] @ 05/30/2021 23:13 Incident Location [id number] [place] [address] Patient JAEL CROCKETT Female, 75 Years 1945 Patient Address [id number] [place] [address] Patient History Chronic Obstructive Pulmonary Disease (COPD), Patient Allergies Other drug allergy, Patient Medications Albuterol, Chief Complaint COPD Disposition Transported No Lights/[place] Dispatch Reason Breathing Problem Transported To [facility] Narrative Arrived on the scene, with P42, for a 75 y/o female that is sitting in a chair in her bedroom. Pt said that she has been having difficulties with her breathing all day. Pt said that she has done a breathing tx 3 times today every 6 hours. Pt said that tonight, the treatment didn't help and that is why [address] [address] EMS Patient Care Report Name: JAEL CROCKETT Room #: REG [facility]#: [id number] Admission: 05/30/21 Attend Phys: Discharge: Date of : 41 Report #: [id number] she called. The medic on the P42 said that she is wheezy and tight and was at 78 percent on RA. With the treatment, Pt made it up to 88-90 percent and still having labored breathing. Pt said that our treatment is helping a little bit. See Pt Assessment COPD See Flowchart. Assisted Pt from the chair to the cot. Transported to the hospital with zero change or incidents. Assisted Pt from the cot to the bed. Transferred care to receiving facility. Initial Vitals @23:33P: 120,R: 22,BP: 146/76,Pain: 0/10,GCS: 15,SpO2: 88,Revised Trauma: 12, @23:43P: 119,R: 22,BP: 142/76,Pain: 0/10,GCS: 15,SpO2: 89,Revised Trauma: 12, Assessments @23:25MENTAL:Time Oriented,Event Oriented,Person Oriented,Place Oriented,SKIN:HEENT:Head/Face: No Abnormalities,Eyes: No Abnormalities,Neck/Airway: No Abnormalities,LUNG SOUNDS:General: No Abnormalities,Left Upper: No Abnormalities,Right Upper: No Abnormalities,Left Lower: No Abnormalities,Right Lower: No Abnormalities,ABDOMEN:General: No Abnormalities,Left Upper: No Abnormalities,Right Upper: No Abnormalities,Left Lower: No Abnormalities,Right Lower: No Abnormalities,PELVIS//GI:No Abnormalities,EXTREMITIES:Left Arm: No Abnormalities,Right Arm: No Abnormalities,Left Leg: No Abnormalities,Right Leg: No Abnormalities,PULSE:Radial: 2+ Normal,NEURO:No Abnormalities, Impression Chronic Obstructive Pulmonary Disease (COPD) Procedures @PTAALS Assessment Response: Unchanged @PTAAlbuterol - 2.5 Milligrams (mg) - Nebulized Response: Improved @23:25 ALS Assessment Response: Unchanged @23:36 IV Therapy - Saline Lock 5cc (20 ga) Site: Forearm-Left Response: UnchangedSucceeded @PTAAtrovent - 0.5 Milligrams (mg) - Nebulized Response: Improved @23:39 Solu-Medrol - 125 Milligrams (mg) - Intravenous (IV) Response: Improved Timeline MARKETING COMMUNICATIONS COORDINATOR,ALS Assessment,Response: Unchanged MARKETING COMMUNICATIONS COORDINATOR,Albuterol - 2.5 Milligrams (mg) - Nebulized,Response: Improved MARKETING COMMUNICATIONS COORDINATOR,Atrovent - 0.5 Milligrams (mg) - Nebulized,Response: Improved 23:11,Call Received [facility] [address] [place] [address] EMS Patient Care Report Name: JAEL CROCKETT E Room #: [facility] [id number] Admission: 05/30/21 Attend Phys: Discharge: Date of : 41 Report #: [id number] 23:11,Dispatch Notified 23:13,Dispatched 23:14,En Route 23:23,On Scene 23:25,At Patient 23:25,ALS Assessment,Response: Unchanged 23:33,BP: 146/76 M,PULSE: 120,RR: 22 R,SPO2: 88 Ox,ETCO2: ,BG: ,PAIN: 0,GCS: 15, 23:34,Depart Scene 23:36,IV Therapy - Saline Lock 5cc 20 ga Site: Forearm-Left,Response: UnchangedSucceeded, 23:39,Solu-Medrol - 125 Milligrams (mg) - Intravenous (IV),Response: Improved 23:43,BP: 142/76 M,PULSE: 119,RR: 22 R,SPO2: 89 Ox,ETCO2: ,BG: ,PAIN: 0,GCS: 15, 23:51,At Destination 00:03,Call Closed Disclaimer v1.1 Copyright 2021 [employer] This EMS Care Summary contains data elements from the applicable legal record (which may be displayed differently). It is designed to provide pertinent information for the following purposes: continuity of care, clinical quality, and state data reporting. The complete legal record is available to ED staff and administrators of the receiving hospital in [employer]'s Patient Tracker. All data is provided "as is."
[~2021-05-30 23:50] MED LIST changes: +AZITHROMYCIN 2250 MG PO; +TESSALON PERLE100 MG PO
[2021-05-31 00:06] VITALS: BP 150/89
[2021-05-31 01:02] LABS: BE(vivo) -2.5 mmol/L (-2 to +3); HCO3 21.8 mmol/L (22.0-26.0); PCO2 35.8 mmHg (35.0-45.0); PO2 171.3 mmHg (80.0-100.0); pH 7.402 (7.360-7.450); sO2 99.2 % (92.0-98.0)
[2021-05-31 01:02] LABS: ABSOLUTE NEUTROPHILS 4.7 thou/uL (1.4-8.2); BASOPHILS 0.5 % (0.0-2.0); EOSINOPHILS 0.3 % (0.0-3.0); HEMATOCRIT 33.9 % (37.0-47.0); LYMPHOCYTES 22.5 % (24.0-44.0); MCH 29.7 pg (26.0-34.0); MCHC 32.3 g/dL (28.0-37.0); MCV 91.8 fL (80.0-100.0); MONOCYTES 3.1 % (1.0-8.0); PLATELET COUNT 173 thou/uL (150-400); POLYS 73.6 % (36.0-66.0); RDW 17.4 % (10.5-14.5); WBC 6.3 thou/uL (4.0-11.0)
[2021-05-31 01:09] LABS: CALCIUM 7.3 mg/dL (8.5-10.1); CREATININE 0.9 mg/dL (0.6-1.0); POTASSIUM 3.6 mmol/L (3.5-5.1)
[2021-05-31 07:01] VITALS: BP 140/79
--- NOTE | 2021-05-31 18:28 | NUR ---
PT ADMITTED FROM ER FOR COVID-19, AND HYPOXEMIC RESP FAILTURE, PT IS A&OX4, PT IS ON OPTIFLOW O2 100%, O2 50-55L/MIN, PT'S O2SAT STAY AT 92-94%, PT HAS SOB WITH ACTIVITIES, PT DENIES PAIN AT THIS TIME, PT HAS STARTED IV ABX AND TREAT COVID MEDICATIONS AT ER .
[2021-05-31 18:54] VITALS: BP 174/94
[2021-05-31 23:10] VITALS: BP 151/89
[2021-06-01 03:03] VITALS: BP 146/86
--- NOTE | 2021-06-01 05:08 | HC ---
Former[facility] [place] [address] CONSULTATION Name: JAEL CROCKETT Room #: 353-P ADM IN .R.#: [id number] Admission: 05/31/21 Attend Phys: Andrey Dempsey MD Discharge: Date of : 41 Report #: [id number] THIS REPORT FOR: cc: Edis Henson,Ron Carias MD ~ DATE OF SERVICE: 05/31/2021 INFECTIOUS DISEASE CONSULTATION ATTENDING PHYSICIAN: Dr. Dempsey. REASON FOR EVALUATION: COVID-19 infection, complicated by pneumonitis, respiratory failure with ARDS. HISTORY OF PRESENT ILLNESS: Chart reviewed. The patient examined. This is a 75-year-old woman with a known history of underlying COPD with bronchiectasis, coronary artery disease as well who notes she has been ill for just 2 days. She noted onset of some wheezing with dyspnea and utilize some breathing treatments without significant benefit. She does have a chronic cough as a result and what appeared to be a progressive illness. She did present to the Emergency Room where she was found to have a positive coronavirus test. ABG showed pH 7.402, pCO2 of 35.8, pO2 of 171.3 on a BiPAP of 80%. Chest x-ray noted diffuse interstitial opacities. Ferritin was 683. Procalcitonin 0.21. Sed rate of 86. She was not noted to be febrile on admission. She was initiated on therapy with Levaquin. ALLERGIES: PENICILLINS. CURRENT MEDICATIONS: Include enoxaparin, ascorbic acid, famotidine, budesonide, methylprednisolone, zinc, Levaquin, ipratropium, albuterol inhaler, guaifenesin, hydralazine, acetaminophen, ondansetron. PAST MEDICAL HISTORY: Has underlying COPD, hypercholesterolemia, hypertension, bronchiectasis, known coronary artery disease. SOCIAL HISTORY: Smokes cigarettes 94-bmpv-uhdy history. No ethanol, no illicit drug use. FAMILY HISTORY: Noncontributory. REVIEW OF SYSTEMS: Otherwise, unremarkable. PHYSICAL EXAMINATION: GENERAL: She appears ill, has several episodes of coughing during the visit. She may be mildly encephalopathic. [facility] [address] [place] [address] CONSULTATION Name: JAEL CROCKETT Room #: 353-P [facility]#: [id number] Admission: 05/31/21 Attend Phys: Andrey Dempsey MD Discharge: Date of : 41 Report #: [id number] VITAL SIGNS: Temperature 98.9, pulse 83, respirations 20, blood pressure 140/79. SKIN: Warm, dry, no rashes. HEENT: BiPAP in place. NECK: Appears to be supple. LUNGS: Bilateral scattered coarse breath sounds, diminished. HEART: Distant, appears to be regular. ABDOMEN: Soft, nontender. EXTREMITIES: No cyanosis. GENITOURINARY AND RECTAL: Deferred. LABORATORY DATA: As described above. Electrolytes: Sodium 143, potassium 3.6, chloride 110, bicarbonate 22, anion gap of 11, BUN and creatinine 20 and 0.9, glucose of 103. BNP of 454. ABGs: pH 7.402, pCO2 of 35.8, pO2 171.3, FiO2 of 80%. CBC: 6.3 white count, H and H 11.0 and 33.9, platelets of 193. ASSESSMENT AND PLAN: COVID-19 infection, complicated by pneumonitis, respiratory failure possible underlying lung disease, may well develop early acute respiratory distress syndrome as well. Continue therapy with empiric antibacterials, additional diagnostic testing. We will add remdesivir in addition to corticosteroids, vitamins, and also baricitinib. She is certainly quite tenuous at this point, at risk for clinical deterioration. <ELECTRONICALLY SIGNED> By: Ron Haque MD 06/01/21 [id number] [id number] Ron Haque MD /nt
[2021-06-01 07:10] LABS: ALBUMIN 2.2 g/dL (3.4-5.0); ANION GAP 8 mmol/L (7-16); BUN 21 mg/dL (7-18); CALCIUM 8.4 mg/dL (8.5-10.1); CHLORIDE 105 mmol/L (98-107); CO2 25 mmol/L (21-32); CREATININE 0.8 mg/dL (0.6-1.0); DIRECT BILIRUBIN < 0.1 mg/dL (<0.1-0.2); GLUCOSE 161 mg/dL (74-106); POTASSIUM 4.4 mmol/L (3.5-5.1); SGOT 106 U/L (15-37); SGPT 82 U/L (14-59); SODIUM 138 mmol/L (136-145); TOTAL BILIRUBIN 0.2 mg/dL (0.2-1.0); TOTAL PROTEIN 6.7 g/dL (6.4-8.2)
[2021-06-01 07:16] VITALS: BP 146/91
--- NOTE | 2021-06-01 07:36 | NUR ---
Pt. on Optiflow at 55L/100% at beginning of shift with O2 sat in the low 90's. Around 0400 she started desatting in th mid 80's . RT put her on BIPAP / ,RR 15 , 100% FIO2 and has maintained O2 sat in the mid to upper 90's. She does get short of breath with minimal exertion. Cont. on enhanced precaution , afebrile. Incontinent of bladder x1 , purewick placed. Pt. has periods of anxiety and stated she takes anxiety med but does not remember the name. Daughter called to check if she has current list and stated she will go to the pt.'s house and will call RN for the updated med list once she finds it. She also stated that pt. needs nicotine patch. Communicated to day RN who will obtain an order this am.
[2021-06-01 11:20] VITALS: BP 146/91
[2021-06-01 15:09] VITALS: BP 164/99
[2021-06-01] MEDS ORDERED: TRELEGY ELLIPT1 EAC1 INH (15:42)
--- NOTE | 2021-06-01 18:31 | NUR ---
RN ASSUMED PT'S CARE AT 0700AM, PT IS A&OX4, PT IS ON BIPAP WITH O2 90-100% AT MOST OF TIME, PT IS ON OPTIFLOW WITH O2 100% ( 60L/MN) WHEN PT IS AT MEAL TIMES, PT HAS SOB WITH ACTIVITIES, PT IS CONTINUING IV ABX AND TREAT COVID MEDICATIONS, RN HAS CALLED DR TO RESTARTE PT'S SOME HOME MEDICATIONS, RN HAS UPDATED PT'S IMFORMATION TO PT'S DAUGTER, PT DENIES PAIN AT DAY SHIFT.
[2021-06-01 19:57] VITALS: BP 142/78
--- NOTE | 2021-06-01 22:54 | NUR ---
PT ALERT AND ORIENTED X4. VSS AFEBRILE. SATS 88-92% ON BIPAP 100%. ENCOURAGED COUGHING AND DB. ADJUSTED MASK SAT INCREASED TO 97% BRIEFLY. WILL CONTINUE TO MONITOR PT CLOSELY. C/O NAUSEA AFTER HS MEDS GIVEN. ZOFRAN GIVEN IV. PT RESTING PRESENTLY.
[2021-06-02 03:24] VITALS: BP 143/58
--- NOTE | 2021-06-02 05:05 | NUR ---
PT RESTING QUIETLY . DENIED PAIN. SAT 90-94% PRESENTLY ON BIPAP 100%. VSS AFEBRILE.
[2021-06-02 05:51] LABS: ALBUMIN 2.2 g/dL (3.4-5.0); CALCIUM 8.3 mg/dL (8.5-10.1); CREATININE 0.8 mg/dL (0.6-1.0); POTASSIUM 4.1 mmol/L (3.5-5.1); TOTAL BILIRUBIN 0.3 mg/dL (0.2-1.0)
[2021-06-02 06:40] LABS: DIRECT BILIRUBIN 0.1 mg/dL (<0.1-0.2)
[2021-06-02 07:40] VITALS: BP 137/87
[2021-06-02 11:17] VITALS: BP 149/89
[2021-06-02 15:14] VITALS: BP 119/76
--- NOTE | 2021-06-02 19:42 | NUR ---
SMITH ASUUIMED PT'S CARE AT 0700-1900PM, PT IS A&OX4, PT IS ON BIPAP WITH O2 100% AT MOST OF TIME,PT'S O2SAT STAY AT 92-95%, BUT PT'S O2SAT DROP TO 83-90%, WHEN PT IS EATING AND DRINKIMG, PT IS CONTINUING IV ABX AND TREAT COVID MEDICATIONS , PT DENIES PAIN AT DAY SHIFT.
[2021-06-02 19:53] VITALS: BP 108/73
--- NOTE | 2021-06-03 03:25 | NUR ---
Remains on BIPAP at 100% with O2 sat in the low 90's and occasionally desat to 88-89% briefly. Cont. on enhanced precaution , afebrile. External cath in place.
[2021-06-03 04:09] VITALS: BP 131/83
[2021-06-03 05:22] LABS: ALBUMIN 2.4 g/dL (3.4-5.0); CALCIUM 8.4 mg/dL (8.5-10.1); CREATININE 1.1 mg/dL (0.6-1.0); DIRECT BILIRUBIN 0.1 mg/dL (<0.1-0.2); POTASSIUM 3.9 mmol/L (3.5-5.1); TOTAL BILIRUBIN 0.4 mg/dL (0.2-1.0); TOTAL PROTEIN 7.3 g/dL (6.4-8.2)
[2021-06-03 11:48] VITALS: BP 125/68
--- NOTE | 2021-06-03 12:23 | NUR ---
INITIAL ASSESSMENT: SW reviewed chart and spoke with nursing and attending physician. Pt was admitted from home due to respiratory failure/COVID. Per chart, pt has received the Moderna COVID vaccination. Pt placed in Enhanced Isolation. Pt is afebrile and requiring 100% bipap support. Pt is on IV meds and Remdesivir. Therapy is currently on hold due to pt's O2 needs. Pt unable to talk via phone. Pt will desat with minimal activity. Per chart, pt lives at home alone. Pt has had home O2 in the past through [facility]. Pt's PCP is listed as Dr. Edis Henson. SW to follow up with pt/family at a later time to obtain info for assessment. SW is following to assist as needed with discharge planning.
[2021-06-03 16:00] VITALS: BP 115/65
--- NOTE | 2021-06-03 18:50 | NUR ---
RN ASSUMED PT'S CARE AT 0700AM, PT IS A&OX4, PT IS ON OPTIFLOW O2 100%, 50-60 L/MIN AT DAY SHIFT, PT'S O2SAT STAY AT 92-97%, PT'S VS ARE STABLE , BUT PT 'S O2SAT DROP WITH PT'S ACTIVITIES, PT DENIES PAIN AT DAY SHIFT.
[2021-06-03 19:35] VITALS: BP 120/69
[2021-06-04 03:30] VITALS: BP 140/78
--- NOTE | 2021-06-04 04:32 | NUR ---
Received pt. on Optiflow at 60L / 100% FIO2 with O2 sat in the low 90's. RT put her on BIPAP at HS with FIO2 at 100% then around MN she titrated FIO2 down to 80% and has maintained O2 sat in the low to mid 90's. She slept well during the night. Cont. on enhanced precaution , afebrile. Making slow progress towards care plan goals.
[2021-06-04 05:06] LABS: ALBUMIN 2.4 g/dL (3.4-5.0); CALCIUM 8.2 mg/dL (8.5-10.1); DIRECT BILIRUBIN 0.1 mg/dL (<0.1-0.2); PHOSPHORUS 3.5 mg/dL (2.5-4.9); TOTAL BILIRUBIN 0.4 mg/dL (0.2-1.0); TOTAL PROTEIN 7.1 g/dL (6.4-8.2)
[2021-06-04 07:27] VITALS: BP 152/82
[2021-06-04 11:41] VITALS: BP 118/76
[2021-06-04 15:54] VITALS: BP 123/72
--- NOTE | 2021-06-04 18:16 | NUR ---
RN ASSUMED PT'S CARE AT 0700AM, PT IS A&OX4, PT IS CONTINUING OPTIFLOW O2 100%, 45L/MIN, PT'S O2SAT STAY AT 92-98%, PT STILL HAS DE-SAT WITH ACTIVITIES, PT'S EATING HAS IMPROVED, PT DENIES PAIN AND N/V AT DAY SHIFT.
[2021-06-04 19:33] VITALS: BP 123/69
[2021-06-05 04:41] VITALS: BP 145/80
--- NOTE | 2021-06-05 04:45 | NUR ---
Received pt. on Optiflow then RT paged at HS as her O2 sat down to 87-88 % once she atrted sleeping. RT put her on BIPAP at 80% FIO2 and has maintained her O2 sat in the mid 90's.Cont. on enhanced precaution ,afebrile. Incontinent of bladder x 1 , external cath in place. Passing gas but no bm this shift.
[2021-06-05 06:03] LABS: ALBUMIN 2.9 g/dL (3.4-5.0); CALCIUM 8.7 mg/dL (8.5-10.1); CREATININE 1.3 mg/dL (0.6-1.0); DIRECT BILIRUBIN 0.1 mg/dL (<0.1-0.2); PHOSPHORUS 4.6 mg/dL (2.5-4.9); POTASSIUM 4.3 mmol/L (3.5-5.1); TOTAL BILIRUBIN 0.5 mg/dL (0.2-1.0)
[2021-06-05 07:22] VITALS: BP 133/83
[2021-06-05 11:23] VITALS: BP 138/79
[2021-06-05 14:04] LABS: BE(vivo) 7.8 mmol/L (-2 to +3); HCO3 31.3 mmol/L (22.0-26.0); PCO2 39.7 mmHg (35.0-45.0); PO2 72.5 mmHg (80.0-100.0); pH 7.515 (7.360-7.450); sO2 95.9 % (92.0-98.0)
[2021-06-05 15:17] VITALS: BP 120/88
--- NOTE | 2021-06-05 15:20 | NUR ---
SW reviewed chart and spoke with nursing and attending physician. Pt remains in Enhanced Isolation due to COVID. Pt is afebrile and requiring optiflow and bipap support. Pt is on IV meds and COVID meds. Therapy is on hold at this time. Pt needed to be placed back on bipap this morning. AZRA is following to assist as needed with discharge planning.
--- NOTE | 2021-06-05 18:28 | NUR ---
PT A/O X 4 AT BEGINNING OF SHIFT. PT BECAME CONFUSED, DISORIENTED APPROX 1000. RIPPED IV OUT, PULLING AT NEW IV. COBAN IN PLACE. PT ATTEMPTED MULTIPLE TIMES TO TAKE BIPAP OFF. PT INCONTINENT. WHILE CHANGING BED, THIS RN NOTICED PT HAD TAKEN THINGS FROM [facility] AND HOARDED IN BED. PT ON OPTIFLOW 45L 100% AT BEGINNING OF SHIFT AND CURRENTLY ON BIPAP AT 70%. PT CURRENTLY CALM AND RESTING IN BED. NO COMPLAINTS. WILL CONTINUE TO MONITOR.
[2021-06-05 20:24] VITALS: BP 100/86
[2021-06-06] VITALS (31 sets, daily range): BP systolic 71–175; BP diastolic 44–101
--- NOTE | 2021-06-06 05:31 | NUR ---
ASSUMED PT CARE AT 1900. PT IS CONFUSED AND DROWSY. PT BECOMES RESTLESS AND AGITATED AND PULLS AT MEDICAL EQUIPMENT. ADMINISTRED ATIVAN PRN AND NOTED RELIEF. PT IS INCONTINENT OF STOOL AND URINE. PURWICK WAS PLACED. VSS AFEBRILE. WILL CONTINUE TO MONITOR.
[2021-06-06 06:39] LABS: ALBUMIN 2.7 g/dL (3.4-5.0); CALCIUM 8.7 mg/dL (8.5-10.1); CREATININE 1.1 mg/dL (0.6-1.0); DIRECT BILIRUBIN 0.1 mg/dL (<0.1-0.2); POTASSIUM 4.1 mmol/L (3.5-5.1); TOTAL BILIRUBIN 0.5 mg/dL (0.2-1.0); TOTAL PROTEIN 7.4 g/dL (6.4-8.2)
[2021-06-06 12:58] LABS: ABSOLUTE NEUTROPHILS 11.2 thou/uL (1.4-8.2); BASOPHILS 0.1 % (0.0-2.0); HEMATOCRIT 41.4 % (37.0-47.0); HEMOGLOBIN 12.9 gm/dL (12.0-15.0); LYMPHOCYTES 2.8 % (24.0-44.0); MCH 29.3 pg (26.0-34.0); MCHC 31.2 g/dL (28.0-37.0); MCV 93.8 fL (80.0-100.0); MONOCYTES 2.6 % (1.0-8.0); PLATELET COUNT 274 thou/uL (150-400); POLYS 94.5 % (36.0-66.0); RBC 4.41 mil/uL (4.20-5.00); RDW 17.7 % (10.5-14.5); WBC 11.9 thou/uL (4.0-11.0)
--- NOTE | 2021-06-06 15:01 | NUR ---
PICC PLACED OVER CL, PT COMBATIVE AND NOT ABLE TO LAY FLAT
--- NOTE | 2021-06-06 15:35 | NUR ---
TRANSFER NOTE: PT TRANSFERRED TO ICU ROOM 247. REPORT GIVEN TO ENRICO. PT IN RESTRAINTS TEMPORARILY DUE TO PULLING AT MEDICAL EQUIPMENT. PT PULLED OUT IV X 2. PULLING OFF BIPAP. EXTREMELY AGITATED WITH LITTLE RELIEF FROM FENTANYL. PT FAMILY NOTIFIED OF ICU TRANSFER.
--- NOTE | 2021-06-06 15:35 | NUR ---
AZRA reviewed chart and spoke with nursing and attending physician. Pt remains in Enhanced Isolation due to COVID. Pt is afebrile and requiring bipap support. Pt is on IV meds and Remdesivir. Pt placed in restraints earlier today due to agitation. AZRA placed call to pt's dtr, Prerna. Introduced role of SW. Pt normally lives at home alone. Prior to admission, pt was independent with ADLs. No use of DME or home O2. No hx of HH services or post-acute placement. Pt's PCP is Dr. Henson. Pt's dtr states that pt is able to go stay or live with family after discharge. While AZRA was on the phone with Prerna, she was receiving another call from [facility]. Pt's dtr took that call. AZRA contacted nurses station. Pt was in the process of being transferred to ICU. Pt's family was being updated by nursing. AZRA is following to assist as needed with discharge planning.
--- NOTE | 2021-06-06 16:02 | NUR ---
PT PLACED ON HOLD FROM P.T. DUE TO DECLINE IN PULMONARY STATUS WITH SUBSEQUENT TRANSFER TO ICU. PT WITH HIGH O2 DEMAND AND INCREASED CONFUSION/AGITATION THIS DATE. REQUEST NEW P.T. ORDERS WHEN APPROPRIATE.
--- NOTE | 2021-06-06 20:12 | NUR ---
TALKED WITH PT'S SON BC (DPOA) WITH FELLOW NURSE FRANCISCO Hoover. BC CLARIFIED THAT PT IS DNR STATUS AND WILL BRING PAPERWORK IN THE MORNING.
[2021-06-06 20:13] LABS: URINE BILIRUBIN NEGATIVE (Negative); URINE BLOOD NEGATIVE (Negative); URINE CLARITY CLEAR; URINE COLOR YELLOW; URINE GLUCOSE-RANDOM* NEGATIVE (Negative); URINE KETONES NEGATIVE (Negative); URINE LEUKOCYTES-REFLEX NEGATIVE (Negative); URINE NITRITE-REFLEX NEGATIVE (Negative); URINE PROTEIN (DIPSTICK) TRACE (Negative); URINE SPECIFIC GRAVITY >= 1.030 (1.005-1.035); URINE UROBILINOGEN 0.2 E.U./dl (0.2-1.0)
--- NOTE | 2021-06-06 20:15 | NUR ---
Luis Fernando Tolliver called me around 1830 to tell me that he spoke with YOLIS Renae and son of pt who said they want to make pt a DNR status. I called the warehouse team member and PM HAND SIZER at around 1930 to verify that RNs are able to put in DNR orders and they both said yes as long as two RNs verify with the family of their wishes. So Daisy Singer RN and myself Jeny Tyson RN called Cricket David at 2014 on 06/06/21 and both verified that he wishes pt to be made DNR status, no intubation and no chest compressions and Cricket said yes make [place] a DNR status. I also updated Cricket on pt status that pt is in ICU on sedation, BIPAP, and Levo to help keep the BP above 90-100.
[2021-06-07] VITALS (84 sets, daily range): BP systolic 80–181; BP diastolic 43–157
[2021-06-07 05:35] LABS: HEMOGLOBIN 11.8 gm/dL (12.0-15.0); MCH 29.8 pg (26.0-34.0); MCHC 31.9 g/dL (28.0-37.0); MCV 93.2 fL (80.0-100.0); RBC 3.97 mil/uL (4.20-5.00); RDW 17.3 % (10.5-14.5); WBC 10.6 thou/uL (4.0-11.0)
[2021-06-07 05:44] LABS: ALBUMIN 2.5 g/dL (3.4-5.0); CREATININE 1.4 mg/dL (0.6-1.0); DIRECT BILIRUBIN 0.1 mg/dL (<0.1-0.2); MAGNESIUM 3.3 mg/dL (1.8-2.4); PHOSPHORUS 3.4 mg/dL (2.5-4.9); POTASSIUM 4.8 mmol/L (3.5-5.1); TOTAL BILIRUBIN 0.4 mg/dL (0.2-1.0); TOTAL PROTEIN 6.5 g/dL (6.4-8.2)
--- NOTE | 2021-06-07 18:24 | NUR ---
THIS AM AROUND 0925 PATIENT AWAKE AND WAS TRYING TO REMOVE BIPAP. HER 02 DROP AND RT WAS CALLED TO THE ROOM. MEDICATIONS WERE GIVEN AND HELP PATIENT GET BACK TO COMFORTABLE, WITH THIS SHE STOP TRYING TO PULL MASK OFF AND 02 CAME BACK UP AND IN TO HIGH 90'S. PATIENT HAS TRYED TO PULL MASK OFF A FEW TIMES TODAY AND EACH TIME HER 02 DROPS. PATIENT DOSE BEST WHEN KEPT COMFORTABLE. TALKED TO SON AND DAUGHTER TODAY AND SHE IS A DNR PAPERWORK WAS BROUGHT IN. THEY WOULD LIKE US TO TRY AND HELP PATIENT WITH KEEPING HER COMFORTABLE IS RESTING IN BED WITH CALL MARIN IN REACH.
--- NOTE | 2021-06-07 22:52 | NUR ---
2100; PT TRANSFERRED TO ROOM 238 WITH BELONGINGS
--- NOTE | 2021-06-08 00:34 | NUR ---
PATIENT ON BIPAP, AWAKE, EYES CLOSED, REMOVED MASK, PULLING AT LINES, MOANING AND MUMBLING. PATIENT GIVEN HALDOL PRN FOR AGITATION
[2021-06-08 04:57] LABS: ABSOLUTE NEUTROPHILS 8.4 thou/uL (1.4-8.2); BASOPHILS 0.2 % (0.0-2.0); HEMATOCRIT 32.2 % (37.0-47.0); HEMOGLOBIN 10.1 gm/dL (12.0-15.0); LYMPHOCYTES 2.7 % (24.0-44.0); MCH 29.8 pg (26.0-34.0); MCHC 31.5 g/dL (28.0-37.0); MCV 94.5 fL (80.0-100.0); PLATELET COUNT 210 thou/uL (150-400); POLYS 95.1 % (36.0-66.0); RDW 16.9 % (10.5-14.5); WBC 8.9 thou/uL (4.0-11.0)
[2021-06-08 05:07] LABS: CALCIUM 7.7 mg/dL (8.5-10.1); CREATININE 0.9 mg/dL (0.6-1.0); DIRECT BILIRUBIN 0.1 mg/dL (<0.1-0.2); MAGNESIUM 2.6 mg/dL (1.8-2.4); PHOSPHORUS 3.1 mg/dL (2.6-4.7); POTASSIUM 4.7 mmol/L (3.5-5.1); TOTAL BILIRUBIN 0.4 mg/dL (0.2-1.0); TOTAL PROTEIN 5.5 g/dL (6.4-8.2)
--- NOTE | 2021-06-08 07:30 | NUR ---
PATIENT DISORIENTED, DOES NOT FOLLOW COMMANDS, OPENS EYES BUT DOES NOT TRACK, PULLS OFF BIPAP MASK, PATIENT MOANS AND WILL REPEAT ONE WORD OVER AND OVER, OR MUMBLES. BIPAP 14/8 100% FI02. PRN VERSED, HALDOL, AND FENTANYL PRN IVPs GIVEN ALONG WIHT CONTINUOUS MAXXED PRECEDEX GTT TO TRY TO PREVENT PATIENT FROM REMOVING BIPAP MASK. PATIENT DESATS TO 60-70S WITH MASK OFF. WILL CONTINUE TO MONITOR
[2021-06-08 08:30] VITALS: BP 128/72
[2021-06-08 11:30] VITALS: BP 128/72
[2021-06-08 14:00] VITALS: BP 139/66
[2021-06-08 16:00] VITALS: BP 131/74
--- NOTE | 2021-06-08 21:14 | NUR ---
1030-WHEN AWAKE,PT FIGHTING AGAINST BIPAP. SEVERLEY AGITATED/SOB & IN RESP DISTRESS.CALL TO -VERSED & FENTANYL NOT EFFECTIVE.--VW 1130- UPDATED EARLIER. MORPHINE GIVEN FOR AIR HUNGER-PT MUCH MORE RESTFUL,LESS SOB.--VW 1200-SLEEPING AT PRESENT.--VW
== END 2021-06-08 19:40 | DRG 871 ==
LOC: ER 23:50 → EROBS 05-31 01:26 → 3W 05-31 01:26 → ICU 06-06 15:47
PROVIDERS: Internal Medicine Pulmonary Disease; Specialist; Student in an Organized Health Care Education/Training Program; ADMIT Hospitalist; ATTEND Hospitalist
DX: A41.9 Sepsis, unspecified organism (principal); U07.1 COVID-19; J12.82 Pneumonia due to coronavirus disease 2019; J80 Acute respiratory distress syndrome; J44.1 Chronic obstructive pulmonary disease with (acute) exacerbation; I42.9 Cardiomyopathy, unspecified; E87.0 Hyperosmolality and hypernatremia; J44.0 Chronic obstructive pulmonary disease with (acute) lower respiratory infection; R65.20 Severe sepsis without septic shock; E78.00 Pure hypercholesterolemia, unspecified; I10 Essential (primary) hypertension; I25.10 Atherosclerotic heart disease of native coronary artery without angina pectoris; F17.210 Nicotine dependence, cigarettes, uncomplicated; E78.5 Hyperlipidemia, unspecified; R41.0 Disorientation, unspecified; E86.9 Volume depletion, unspecified; Z66 Do not resuscitate; Z90.49 Acquired absence of other specified parts of digestive tract; Z98.49 Cataract extraction status, unspecified eye; Z88.0 Allergy status to penicillin; Z90.711 Acquired absence of uterus with remaining cervical stump; Z83.3 Family history of diabetes mellitus; Z51.5 Encounter for palliative care
CPT/HCPCS: 10078; 10879; 27000; 50455